=== PATIENT | male | born 1990 | race Caucasian/White ===

== ENCOUNTER 2019-06-24 22:58 | Emergency (ER) | payer SELFPAY ==
[~2019-06-24] VITALS: Ht 172.7 cm; Wt 100.0 kg
[2019-06-25] MEDS ORDERED: ULTRAM50 M1 PO (00:16)
[2019-06-25] MEDS ORDERED: CEPHALEXIN500 M1 PO (00:16)
[2019-06-25 00:40] VITALS: BP 121/65
== END 2019-06-25 00:40 | disposition home or self-care (01) | DRG 605 ==
LOC: ED 22:58
DX: S91.331A Puncture wound without foreign body, right foot, initial encounter (principal); F17.220 Nicotine dependence, chewing tobacco, uncomplicated; W45.0XXA Nail entering through skin, initial encounter; Y92.009 Unspecified place in unspecified non-institutional (private) residence as the place of occurrence of the external cause